=== PATIENT | male | born 1945 ===

== ENCOUNTER 2019-01-11 10:26 | Day surgery (SDC) | payer MEDICARE, OTHER ==
[2019-01-11] MEDS ORDERED: LIDOCAINE 2% MDV (20MG/ML) 20ML VIAL IV ONE (10:27)
[2019-01-11] MEDS ORDERED: PROPOFOL 10 MG/ML VIAL IV ONE (10:27)
--- NOTE | 2019-01-12 09:50 | Operative Note ---
OPERATION: COLONOSCOPY with cold forceps polypectomy. PREOPERATIVE DIAGNOSIS: Colon cancer screening, average risk. POSTOPERATIVE DIAGNOSIS: Descending colon polyp, mild sigmoid diverticulosis. PREPARATION QUALITY: Good. ESTIMATED BLOOD LOSS: Minimum. SPECIMENS: Descending colon polyp. PROCEDURE: After informed consent was obtained from the patient, he was placed in the left lateral decubitus position in the endoscopy suite, sedated and monitored by the department of anesthesia. Digital rectal exam was unremarkable. A well-lubricated [id number] colonoscope was inserted into the rectum and advanced to the cecum. The ileocecal valve, appendiceal orifice, cecum, ascending colon, and transverse colon were free of inflammatory changes, mass lesions, or polyps. There was a diminutive descending colon polyp which was removed with a cold forceps. The remainder of the descending colon, sigmoid colon, and rectum were otherwise unremarkable other than a few scattered sigmoid diverticula. Forward and J-turn views of the rectum and anorectum were unrevealing. The endoscope was straightened, the rectal ampulla deflated, and the endoscope was removed. RECOMMENDATIONS: The patient should follow a high-fiber diet. I recommend repeat exam in 5-10 years pending tissue histology. As always, thank you for allowing me to participate in the healthcare of your patients. YESENIA
== END 2019-01-11 12:02 | disposition home or self-care (01) ==
LOC: HOP 10:26
PROVIDERS: ATTEND Internal Medicine Gastroenterology
DX: Z12.11 Encounter for screening for malignant neoplasm of colon (principal); D12.4 Benign neoplasm of descending colon; K57.30 Diverticulosis of large intestine without perforation or abscess without bleeding; E78.00 Pure hypercholesterolemia, unspecified